=== PATIENT | female | born 1950 | race Caucasian/White ===

== ENCOUNTER 2020-07-17 07:32 | Outpatient (REF) | payer BC, SELFPAY ==
--- NOTE | 2020-07-17 07:37 | MM_ITS ---
EXAMINATION: MM SCREENING DIGITAL BREAST TOMOSYNTHESIS, BILATERAL CLINICAL INFORMATION: Screening. Asymptomatic. Right lumpectomy for breast cancer 2008. Due for yearly. COMPARISON: Mammography: 02/15/2019, 12/31/2017, 11/06/2016 TECHNIQUE: Digital breast tomosynthesis is performed in both the craniocaudal and mediolateral oblique views along with computer-aided detection (CAD). Synthesized 2D images are generated from the tomosynthesis. FINDINGS: There are scattered areas of fibroglandular density (ACR BI-RADS breast composition Category b). Breast tissue composition borders on heterogeneously dense. Parenchymal pattern is similar to prior exams. There is no developing density or interval mass or interval architectural abnormality. No abnormal calcifications. Postsurgical changes central upper right breast are again seen with old scarring, surgical clips, and some coarse benign calcification. MM/MM tomosynthesis screening BI IMPRESSION: No significant changes from prior exams. Post therapy changes right breast. ASSESSMENT: BI-RADS 2: Benign RECOMMENDATION: Routine annual mammography screening. This patient's information was entered into a reminder system with a target due date for their next mammogram.
== END 2020-07-17 07:33 | disposition home or self-care (01) ==
LOC: HO.MAMMO 07:32
PROVIDERS: PCP Internal Medicine; Visit Provider Internal Medicine
DX: Z12.31 Encounter for screening mammogram for malignant neoplasm of breast (principal)
CPT/HCPCS: 77063; 77067

== ENCOUNTER 2021-08-08 07:34 | Outpatient (REF) | payer MEDICARE, SELFPAY ==
--- NOTE | ~2021-08-08 | MM_ITS ---
EXAMINATION: MM SCREENING DIGITAL BREAST TOMOSYNTHESIS, BILATERAL CLINICAL INFORMATION: Right lumpectomy for breast cancer, 2008. Family history breast cancer, mother. Due for yearly exam. COMPARISON: Mammography: 07/17/2020, 02/15/2019, 12/31/2017, 11/06/2016 TECHNIQUE: Digital breast tomosynthesis is performed in both the craniocaudal and mediolateral oblique views along with computer-aided detection (CAD). Synthesized 2D images are generated from the tomosynthesis. FINDINGS: There are scattered areas of fibroglandular density (ACR BI-RADS breast composition Category b). Breast tissue composition borders on heterogeneously dense. There are stable post therapy changes central upper right breast with old scarring and surgical clips. Neither breast shows interval mass or architectural abnormality or developing density. No abnormal calcifications. There is benign coarse calcification in the lumpectomy scar. The axilla are unremarkable. No significant changes. MM/MM tomosynthesis screening BI IMPRESSION: No mammographic evidence of malignancy. Post therapy changes right breast. ASSESSMENT: BI-RADS 2: Benign RECOMMENDATION: Routine annual mammography screening. This patient's information was entered into a reminder system with a target due date for their next mammogram.
== END 2021-08-08 07:35 | disposition home or self-care (01) ==
LOC: HO.MAMMO 07:34
PROVIDERS: PCP Internal Medicine; Visit Provider Internal Medicine
DX: Z12.31 Encounter for screening mammogram for malignant neoplasm of breast (principal)
CPT/HCPCS: 77063; 77067

== ENCOUNTER 2021-09-02 08:53 | Outpatient (REF) | payer MEDICARE, SELFPAY ==
[2021-09-02 14:23] LABS: Alanine Aminotransferase 14 U/L (0-31); Anion Gap 12 (12-20); Aspartate Amino Transferase 21 U/L (5-31); Carbon Dioxide 30 mmol/L (22-29); Chloride 101 mmol/L (96-108); Cholesterol 235 mg/dL; Estimated Glomerular Filt Rate > 60; Glucose Fasting 95 mg/dL (60-99); HDL Cholesterol 55 mg/dL; LDL Cholesterol Calculated 161 mg/dl; Potassium 4.3 mmol/L (3.3-5.1); Sodium 139 mmol/L (135-145); Triglycerides 95 mg/dL
[2021-09-02 14:27] LABS: Vitamin D 25-OH Total 42.1 ng/mL (>30)
[2021-09-02 15:17] LABS: Blood Urea Nitrogen 21 mg/dL (9-16); Calcium 10.2 mg/dL (8.4-10.2)
== END 2021-09-02 08:54 | disposition home or self-care (01) ==
LOC: HO.HMGCLDS 08:53
PROVIDERS: PCP Internal Medicine; Visit Provider Internal Medicine
DX: E78.5 Hyperlipidemia, unspecified (principal); I10 Essential (primary) hypertension; M85.852 Other specified disorders of bone density and structure, left thigh; Z78.0 Asymptomatic menopausal state
CPT/HCPCS: 36415; 80048; 80061; 82306; 84450; 84460

== ENCOUNTER 2022-08-28 09:05 | Outpatient (REF) | payer MEDICARE, SELFPAY ==
--- NOTE | ~2022-08-28 | MM_ITS ---
EXAMINATION: MM SCREENING DIGITAL BREAST TOMOSYNTHESIS, BILATERAL CLINICAL INFORMATION: Screening. Asymptomatic. Status post right lumpectomy. COMPARISON: Mammography: August 08, 2021 and studies dating back to August 16, 2015 TECHNIQUE: Digital breast tomosynthesis is performed in both the craniocaudal and mediolateral oblique views along with computer-aided detection (CAD). Synthesized 2D images are generated from the tomosynthesis. FINDINGS: The breasts are heterogeneously dense, which may obscure small masses (ACR BI-RADS breast composition Category c). There are no new significant masses, abnormal calcifications, or other abnormalities. Postsurgical change right breast identified. MM/MM tomosynthesis screening BI IMPRESSION: No significant changes ASSESSMENT: BI-RADS 2: Benign RECOMMENDATION: Routine annual mammography screening. This patient's information was entered into a reminder system with a target due date for their next mammogram.
== END 2022-08-28 09:06 | disposition home or self-care (01) ==
LOC: HO.MAMMO 09:05
PROVIDERS: PCP Internal Medicine; Visit Provider Internal Medicine
DX: Z12.31 Encounter for screening mammogram for malignant neoplasm of breast (principal)
CPT/HCPCS: 77063; 77067

== ENCOUNTER 2022-09-01 08:14 | Outpatient (REF) | payer MEDICARE, SELFPAY ==
[2022-09-01 11:56] LABS: Alanine Aminotransferase 18 U/L (0-31); Anion Gap 14 (12-20); Aspartate Amino Transferase 23 U/L (5-31); Blood Urea Nitrogen 12 mg/dL (9-16); Calcium 9.5 mg/dL (8.4-10.2); Carbon Dioxide 28 mmol/L (22-29); Chloride 102 mmol/L (96-108); Cholesterol 208 mg/dL; Estimated Glomerular Filt Rate > 60; Glucose Fasting 87 mg/dL (60-99); HDL Cholesterol 47 mg/dL; LDL Cholesterol Calculated 141 mg/dl; Sodium 140 mmol/L (135-145); Triglycerides 100 mg/dL
[2022-09-01 12:12] LABS: Vitamin D 25-OH Total 46.4 ng/mL (>30)
== END 2022-09-01 08:15 | disposition home or self-care (01) ==
LOC: HO.HMGCLDS 08:14
PROVIDERS: PCP Internal Medicine; Visit Provider Internal Medicine
DX: E78.5 Hyperlipidemia, unspecified (principal); I10 Essential (primary) hypertension
CPT/HCPCS: 36415; 80048; 80061; 82306; 84450; 84460

== ENCOUNTER 2022-09-27 10:40 | Outpatient (REF) | payer MEDICARE, SELFPAY ==
--- NOTE | ~2022-09-27 | MM_ITS ---
EXAMINATION: BONE DENSITOMETRY CLINICAL INDICATION: Osteopenia. COMPARISON: Previous BD dated 02/15/2019 and baseline BD dated 01/15/2010. TECHNIQUE: Using a [employer] DXA System (software version: 13.1) manufactured by [employer], dual-energy x-ray absorptiometry was performed of the lumbar spine and left hip. The images are of good technical quality. Summary results are attached. FINDINGS: AP SPINE L1-L2 (excluding L3 and L4): The data of L1-L4 has been changed to exclude the L3 and L4 vertebral bodies, because degenerative changes at these levels may cause overestimation of lumbar spine density. Current: BMD 1.053 g/cm2, Z-score 0.7, T-score -0.9, normal, 6.6% decrease from previous, 11.4% decrease from baseline (<5% change is not significant). Prior: BMD 1.127 g/cm2. Baseline: BMD 1.189 g/cm2. LEFT FEMUR, NECK: Current: BMD 0.757 g/cm2, Z-score -0.3, T-score -2.0, osteopenia. Prior: BMD 0.761 g/cm2. Baseline: BMD 0.857 g/cm2. LEFT FEMUR, TOTAL: Current: BMD 0.880 g/cm2, Z-score 0.5, T-score -1.0, normal, 5.8% decrease from previous, 12.0% decrease from baseline (<5% change is not significant). Prior: BMD 0.934 g/cm2. Baseline: BMD 1.000 g/cm2. IDENTIFIED RISK FACTORS: Menopause. HISTORY OF FRACTURE: None listed. MEDICATIONS: Calcium, vitamin D. MM/XR DEXA axial skeleton IMPRESSION: 1. DIAGNOSIS: Osteopenia based on the lowest T-score value of -2.0 in the femoral neck applying World Health Organization criteria. 2. 10-YEAR FRACTURE RISK PREDICTION, FRAX: Major osteoporotic fracture (clinical spine, forearm, hip or shoulder) 12.4%. Hip fracture 2.7%. 3. Treatment Recommendations: NOF guidelines recommend consideration for treatment in postmenopausal women and men age 50 and older presenting with the following: -A hip or vertebral (clinical or morphometric) fracture. -T-score less than or equal to -2.5 at the femoral neck or spine after appropriate evaluation to exclude secondary causes. -Low bone mass at the hip or spine and a 10-year fracture probability by FRAX of greater than or equal to 3% for hip fracture or greater than or equal to 20% for major osteoporotic fracture based on the [place] adapted WHO algorithm. 4. Other Recommendations: All treatment decisions require clinical judgment and consideration of individual patient factors, including patient preferences, comorbidities, previous drug use, risk factors not captured in the FRAX model (e.g. frailty, falls, vitamin D deficiency, increased bone turnover, interval significant decline in bone density) and possible under or overestimation of fracture risk by FRAX. Additional medical evaluation for secondary cause of low bone mineral density may be appropriate. FUTURE SCAN RECOMMENDATION: People with diagnosed cases of osteoporosis or at high risk for fracture should have regular bone mineral density tests. For patients eligible for Medicare, routine testing is allowed once every 2 years. The testing frequency can be increased to one year for patients who have rapidly progressing disease, those who are receiving or discontinuing medical therapy to restore bone mass, or have additional risk factors.
== END 2022-09-27 10:41 | disposition home or self-care (01) ==
LOC: HO.MAMMO 10:40
PROVIDERS: PCP Internal Medicine; Visit Provider Internal Medicine
DX: Z13.820 Encounter for screening for osteoporosis (principal); M85.852 Other specified disorders of bone density and structure, left thigh; Z78.0 Asymptomatic menopausal state
CPT/HCPCS: 77080

== ENCOUNTER 2023-05-06 10:52 | Outpatient (AMB) | payer MEDICARE, SELFPAY ==
[2023-05-06 11:06] VITALS: BP 150/90; PULSE 58; O2SAT 98; BMI 24.8
--- NOTE | 2023-05-06 11:06 | A.OFFPC_ITS ---
Vital Signs 05/06/23 11:06 05/06/23 11:15 Height 5 ft 1 in Weight 131 lb 6 oz BMI 24.8 BP 150/90 H 130/90 H Blood Pressure Location Lt brachial Rt brachial Position Sitting Sitting Pulse 58 Pulse Source Pulse Oximeter Pulse Oximetry (%) 98 Oxygen Delivery Method Room Air Intake Visit Reasons: F/U HTN Intake Note: pt is here for f/u htn Clinical Analyst Required: No Accompanied by: Self / Same As Patient Allergies No Known Allergies [No Known Allergies*] Allergy (Verified 05/06/23 11:25) Medication List - Last Reconciled 05/06/23 by Tressa Toro MD calcium carbonate-vitamin D3 600 mg-20 mcg (800 unit) (Caltrate with Vitamin D3) 1 tab PO BID metoprolol succinate ER 100 mg PO DAILY valsartan-hydrochlorothiazide 160-12.5 mg 1 tab PO DAILY Tobacco use date assessed: 09/06/22 Fall risk assessment: No Falls in past year Last assessed Fall Risk: 05/06/23 Dental Screening Dental Screen Date: 05/06/23 Did you have a dental visit in the last 12 months?: Yes Did you have a dental problem in the last 6 months where you did not have access to dental care?: No Was dental information given to patient?: Patient has dentist HPI F/U HTN HPI Details 72-year-old lady here today for follow-u p on her hypertension. She is currently on metoprolol succinate ER 100 mg at night and valsartan and-HCTZ 160- 12.5 mg which he takes in the morning. He has been staying active, trying to follow recommended diet, and feels well overall. She has been checking at home her blood pressure and it always has been running from between 120/80 to 130/90. Has been told that she has white coat hypertension in the past [facility] Medical History (Updated 05/08/23 @ 02:49 by Tressa Toro MD) White coat syndrome with hypertension Factor 5 Leiden mutation, heterozygous Osteopenia of left hip History of right breast cancer Dyslipidemia Essential hypertension Dermatitis Surgical History History of breast surgery Family History Father HTN (hypertension) Mother HTN (hypertension) Thyroid disorder Brother HTN (hypertension) DVT (deep venous thrombosis) Substance use disorder Maternal Grandfather No problems noted. Maternal Grandmother No problems noted. Paternal Grandfather No problems noted. Paternal Grandmother No problems noted. Brother No problems noted. Sister Alcoholism Daughter No problems noted. Social History Housing: House Alcohol intake: current Patient Tobacco Use Status: Never used Tobacco e-Cigarette/Vaping Use: Never Used service: No Current occupational status: retired Cognitive needs: No Hearing needs: No Vision needs: Yes Questionnaire Thrive Questionnaire Date Thrive assessed: 09/06/22 REMIGIO-7 AMB Questionnaire REMIGIO-7 Date REMIGIO - 7 assessed: 09/06/22 Source: Developed by Drs. Darryl Salvador, Florecita Sweeney, Andrew Quiñones and colleagues, with an educational jane from [employer]. Review of Systems Const Denies body aches, Denies fever(s), Denies headache(s) and Denies weakness Eyes Details: Goes to [facility] Reports no additional complaints ENT Denies dizziness, Denies headache(s), Denies nasal congestion, Denies nasal discharge and Denies sore throat Card Denies chest pain, Denies lightheadedness and Denies dyspnea Resp Denies chest congestion, Denies cough and Denies dyspnea GI Denies abdominal pain, Denies change in bowel habits and Denies heartburn Reports no additional complaints Musc Reports no additional complaints Neuro Denies dizziness, Denies headache(s) and Denies weakness Endo Reports no additional complaints Jean/Lymph Reports no additional complaints Aller/Immun Reports no additional complaints Physical exam (Primary Care) Vital Signs: Last Vital Signs Pulse 58 05/06/23 11:06 BP 130/90 H 05/06/23 11:15 Pulse Ox 98 05/06/23 11:06 Oxygen Delivery Method Room Air 05/06/23 11:06 Care Plan Goal for BP management: Patient states that she checks her blood pressure at home and it has always been running around 116/80. BMI result Body Mass Index 24.8 Tobacco/Smoking Status: Tobacco use Status Tobacco use date assessed 09/06/22 05/06/23 11:07 Patient Tobacco Use Status Never used Tobacco 05/06/23 11:07 e-Cigarette/Vaping Use Never Used 05/06/23 11:07 Thrive Assessment: Date of Thrive Assessment Date Thrive assessed 09/06/22 05/06/23 11:07 Const General: healthy appearing, comfortable and no acute distress Nutritional Appearance: average body habitus Orientation/consciousness: patient oriented x3 HENMT Face and sinus: Yes sinuses nontender and Yes face symmetric Mouth: Normal oral and palatal mucosa present, lip normal, tongue normal and moist mucous membranes Eyes General: appearance normal, both eyes and all related structures Neck Neck: Yes full ROM, Yes no lymphadenopathy and Yes no meningeal signs Thyroid: Thyroid normal Chest Chest palpation & inspection: normal inspection of the chest Breast/axilla inspection: normal inspection of the breasts Breast/axilla palpation: normal palpation of the breasts Resp Effort & Inspection: normal respiratory effort and able to speak in complete sentences Auscultation: clear to auscultation bilaterally Cardio Rate: regular rate Rhythm: regular rhythm Heart sounds: S1 normal heart sound present and S2 normal heart sound present Bruits: no abdominal aortic bruits GI Inspection: Yes normal to inspection Palpation (GI): No Abdominal aortic bruit present, nontender and no guarding Auscultation: normal bowel sounds General: Yes no CVA tenderness Back/Spine/Pelvis Back: no CVA tenderness and No back tenderness Skin General skin exam: no rashes or lesions noted Neuro General: patient oriented x3, gait normal, tone normal, moves all extremities, Normal light touch and pain sensation, no meningeal signs, no focal motor deficits and CN's II-XI intact bilaterally Gait exam (Neuro): Normal gait present Motor exam (neuro): 5/5 motor strength present throughout Extrem General: Yes full ROM, Yes no joint enlargement, Yes no clubbing, cyanosis or edema, Yes no pedal edema and Yes normal gait Assessment and Plan Assessment & Plan (1) Essential hypertension: Code(s): I10 - Essential (primary) hypertension Plan: Blood pressure at goal of less than 130/80. Continue with current medication. Reinforced importance of following a low sodium diet, getting regular exercise, and lowering stress levels. (2) White coat syndrome with hypertension: Code(s): I10 - Essential (primary) hypertension Coding Level of Care Code Est Pt Level 3 (09756) Diagnoses Essential hypertension I10 White coat syndrome with hypertension I10
[2023-05-06 11:15] VITALS: BP 130/90
== END 2023-05-06 11:57 | disposition home or self-care (01) ==
PROVIDERS: PCP Internal Medicine; Visit Provider Internal Medicine
DX: I10 Essential (primary) hypertension (principal)
CPT/HCPCS: 99213

== ENCOUNTER 2023-09-02 07:52 | Outpatient (REF) | payer MEDICARE, SELFPAY ==
[2023-09-02 12:04] LABS: Alanine Aminotransferase 19 U/L (0-31); Anion Gap 13 (12-20); Aspartate Amino Transferase 25 U/L (5-31); Blood Urea Nitrogen 15 mg/dL (9-16); Calcium 9.7 mg/dL (8.4-10.2); Carbon Dioxide 28 mmol/L (22-29); Chloride 99 mmol/L (96-108); Cholesterol 210 mg/dL (<200); Estimated Glomerular Filt Rate > 60; Glucose Fasting 93 mg/dL (60-99); HDL Cholesterol 55 mg/dL (>40); LDL Cholesterol Calculated 140 mg/dL (<100); Potassium 3.7 mmol/L (3.3-5.1); Sodium 136 mmol/L (135-145); Triglycerides 75 mg/dL (<150)
[2023-09-02 12:20] LABS: Vitamin D 25-OH Total 58.2 ng/mL (>30)
== END 2023-09-02 07:53 | disposition home or self-care (01) ==
LOC: HO.HMGCLDS 07:52
PROVIDERS: PCP Internal Medicine; Visit Provider Internal Medicine
DX: M85.852 Other specified disorders of bone density and structure, left thigh (principal); E78.5 Hyperlipidemia, unspecified; I10 Essential (primary) hypertension
CPT/HCPCS: 36415; 80048; 80061; 82306; 84450; 84460

== ENCOUNTER 2023-09-12 07:43 | Outpatient (AMB) | payer MEDICARE, SELFPAY ==
[2023-09-12 07:45] VITALS: BP 142/76; PULSE 57; O2SAT 100; BMI 25.7
--- NOTE | 2023-09-12 07:45 | A.OFFPC_ITS ---
Vital Signs 09/12/23 07:45 09/12/23 08:42 Height 5 ft 1 in Weight 136 lb BMI 25.7 BP 142/76 H 135/80 Blood Pressure Location Lt brachial Lt brachial Position Sitting Supine Pulse 57 Pulse Source Pulse Oximeter Pulse Oximetry (%) 100 Oxygen Delivery Method Room Air Comment Patient states she just had 2 cups of black coffee prior to coming in today Intake Visit Reasons: Annual PE Intake Note: Pt is here today for her PE; Last mammogram 08/28/22, bone density scan 09/27/22, colonoscopy 09/24/16 Allergies No Known Allergies [No Known Allergies*] Allergy (Verified 09/12/23 08:13) Medication List - Last Reconciled 09/12/23 by Tressa Toro MD cholecalciferol (vitamin D3) 50 mcg PO DAILY metoprolol succinate ER 100 mg PO DAILY ywrhvvuf-uch-dvav-FA-vit K-lut 8 mg iron-400 mcg-50 mcg (Centrum Silver Women) 1 tab PO 3XW valsartan-hydrochlorothiazide 160-12.5 mg 1 tab PO DAILY Tobacco use date assessed: 09/12/23 Fall risk assessment: No Falls in past year Last assessed Fall Risk: 09/12/23 Dental Screening Dental Screen Date: 09/12/23 Did you have a dental visit in the last 12 months?: Yes Did you have a dental problem in the last 6 months where you did not have access to dental care?: No Was dental information given to patient?: Patient has dentist HPI Annual PE HPI Details 72 Year old lady here today for her phys ical exam. She is up-to-date with her mammogram which was last 08/28/22, bone density scan 09/27/22 showed beginning osteopenia in left femoral neck, and screening colonoscopy 09/24/16 which showed normal findings, repeat again in10 years. She has a healthy diet, eats a 3 times a week, and chicken a lot of vegetables and fruit, rarely eats red meat. She exercises regularly with weights, walks daily. She has been feeling well with no complaints at present time. Recent fasting labs showed normal electrolytes fasting glucose renal function, liver enzymes, vitamin-D level, and lipids showed elevated LDL cholesterol at 140, lower than last check. [facility] Medical History (Updated 09/12/23 @ 08:44 by Tressa Toro MD) White coat syndrome with hypertension Factor 5 Leiden mutation, heterozygous Osteopenia of left hip History of right breast cancer Dyslipidemia Essential hypertension Dermatitis Surgical History History of breast surgery Family History (Updated 09/12/23 @ 08:44 by Tressa Toro MD) Father HTN (hypertension) Mother HTN (hypertension) Thyroid disorder Brother HTN (hypertension) DVT (deep venous thrombosis) Substance use disorder, Onset Age: 60 History of ND (myocardial infarction) Maternal Grandfather No problems noted. Maternal Grandmother No problems noted. Paternal Grandfather No problems noted. Paternal Grandmother No problems noted. Brother No problems noted. Sister Alcoholism Daughter No problems noted. Social History Housing: House Alcohol intake: current Patient Tobacco Use Status: Never used Tobacco e-Cigarette/Vaping Use: Never Used service: No Current occupational status: retired Cognitive needs: No Hearing needs: No Vision needs: Yes Questionnaire PHQ-9 Over the last 2 weeks, how often have you been bothered by any of the following problems? 1. Little interest or pleasure in doing things: not at all 2. Feeling down, depressed, or hopeless: not at all 3. Trouble falling or staying asleep, or sleeping too much: not at all 4. Feeling tired or having little energy: not at all 5. Poor appetite or overeating: not at all 6. Feeling bad about yourself - or that you are a failure or have let yourself or your family down: not at all 7. Trouble concentrating on things, such as reading the newspaper or watching television: not at all 8. Moving or speaking so slowly that other people could have noticed. Or the opposite - being so fidgety or restless that you have been moving around a lot more than usual: not at all 9. Thoughts that you would be better off or of hurting yourself in some way: not at all Total score: 0 Depression Screening Interpretation: Negative Depression Screening Done: Yes 04059 - PHQ-9 Billing: Yes Source: Developed by Drs. Darryl LFlorecita Norman Kurt Kroenke and colleagues, with an educational jane from [employer]. Thrive Questionnaire Date Thrive assessed: 09/12/23 I am a: Patient What is your living situation today?: I have a steady place to live Within the past 12 months, did the food you bought not last and you didn't have the money to get more?: Never true Within the past 12 months, did you worry whether your food would run out before you got money to buy more?: Never true Do you have trouble paying for medicines?: No Do you have trouble getting transportation to medical appointments?: No Do you have trouble paying your heating and electricity bill?: No Do you have trouble taking care of your child, family member or friend?: No Do you have trouble with day-to-day activities such as bathing, preparing meals, shopping, managing finances, etc.?: No Are you currently unemployed and looking for a job?: No Are you interested in more education?: No THRIVE Score: 0 AUDIT C Alcohol Use Questionnaire (AUDIT-C) 1. How often do you have a drink containing alcohol?: 4 or more times a week 2. How many drinks containing alcohol do you have on a typical day when you are drinking?: 1 or 2 3. How often do you have six or more drinks on one occasion?: Never Total Score: 4 REMIGIO-7 AMB Questionnaire REMIGIO-7 Date REMIGIO - 7 assessed: 09/12/23 Feeling nervous, anxious, or on edge: 0 = Not at all Not being able to stop or control worryin = Not at all Worrying too much about different things: 0 = Not at all Trouble relaxin = Not at all Being so restless that it is hard to sit still: 0 = Not at all Becoming easily annoyed or irritable: 0 = Not at all Feeling afraid as if something awful might happen: 0 = Not at all Total REMIGIO-7 score (0-4 normal; 5-9 mild; 10-14 moderate; 15-21 severe): 0 Source: Developed by Drs. Darryl Salvador, Andrew Owens and colleagues, with an educational jane from [employer]. REMIGIO-7 Assessment Billing REMIGIO-7 Assessment Tool: REMIGIO-7 Assessment 51416 Review of Systems Const Denies body aches, Denies fever(s), Denies headache(s) and Denies weakness Eyes Details: Goes to [facility] eye care, up-to-date with her eye exam Reports no additional complaints ENT Denies dizziness, Denies headache(s), Denies nasal congestion, Denies nasal discharge and Denies sore throat Card Denies chest pain, Denies lightheadedness and Denies dyspnea Resp Denies chest congestion, Denies cough and Denies dyspnea GI Denies abdominal pain, Denies change in bowel habits and Denies heartburn Reports no additional complaints Musc Reports no additional complaints Skin/Breast Denies breast swelling, Denies breast skin changes, Reports breast pain (Occasional over lumpectomy site right breast), Denies breast mass, Denies change in breast shape, Denies lesions and Denies rash Neuro Denies dizziness, Denies headache(s) and Denies weakness Psych Reports no additional complaints Endo Reports no additional complaints Jean/Lymph Reports no additional complaints Aller/Immun Reports no additional complaints Physical exam (Primary Care) Vital Signs: Last Vital Signs Pulse 57 09/12/23 07:45 BP 142/76 H 09/12/23 07:45 Pulse Ox 100 09/12/23 07:45 Oxygen Delivery Method Room Air 09/12/23 07:45 Care Plan Goal for BP management: Patient states that she checks her blood pressure at home and it has always been running around 116/80. BMI result Body Mass Index 25.7 Tobacco/Smoking Status: Tobacco use Status Tobacco use date assessed 09/12/23 09/12/23 07:47 Patient Tobacco Use Status Never used Tobacco 09/12/23 07:47 e-Cigarette/Vaping Use Never Used 09/12/23 07:47 PHQ-9: PHQ-9 Score PHQ-9: Total score 0 09/12/23 07:53 Depression Screening Interpretation: Negative Thrive Assessment: Date of Thrive Assessment Date Thrive assessed 09/12/23 09/12/23 07:53 Const General: healthy appearing, comfortable and no acute distress Nutritional Appearance: average body habitus Orientation/consciousness: patient oriented x3 HENMT Face and sinus: Yes sinuses nontender and Yes face symmetric Mouth: Normal oral and palatal mucosa present, lip normal, tongue normal and moist mucous membranes Eyes General: appearance normal, both eyes and all related structures Neck Neck: Yes full ROM, Yes no lymphadenopathy and Yes no meningeal signs Thyroid: Thyroid normal Chest Chest palpation & inspection: normal inspection of the chest Breast/axilla inspection: normal inspection of the breasts Breast/axilla palpation: normal palpation of the breasts (Slight thickening over upper quadrant of right breast due to scar) Resp Effort & Inspection: normal respiratory effort and able to speak in complete sentences Auscultation: clear to auscultation bilaterally Cardio Rate: regular rate Rhythm: regular rhythm Heart sounds: S1 normal heart sound present and S2 normal heart sound present Bruits: no abdominal aortic bruits GI Inspection: Yes normal to inspection Palpation (GI): No Abdominal aortic bruit present, nontender and no guarding Auscultation: normal bowel sounds General: Yes no CVA tenderness Back/Spine/Pelvis Back: no CVA tenderness and No back tenderness Skin General skin exam: no rashes or lesions noted Neuro General: patient oriented x3, gait normal, tone normal, moves all extremities, Normal light touch and pain sensation, no meningeal signs, no focal motor deficits and CN's II-XI intact bilaterally Gait exam (Neuro): Normal gait present Motor exam (neuro): 5/5 motor strength present throughout Extrem General: Yes full ROM, Yes no joint enlargement, Yes no clubbing, cyanosis or edema, Yes no pedal edema and Yes normal gait Psych Appearance: grossly normal and well kempt Mental Status: mental status grossly normal Speech and movement: Normal speech and movement present Affect: normal affect Attitude: cooperative Thought process: Normal thought process present Thought content: Normal thought content present Results Reviewed Results Reviewed: ENTERED: 09/02/23-[address]: ORDERED: Met Prof Fast, AST, ALT, Lipid Panel, Vitamin D 25-OH Test Result Flag Reference Sodium 136 135-145 mmol/L Potassium 3.7 3.3-5.1 mmol/L CL 99 96-108 mmol/L CO2 28 22-29 mmol/L Gap 13 12-20 BUN 15 9-16 mg/dL Creat 0.82 0.5-1.4 mg/dL EGFR > 60 NOTE: For -[place] individuals, multiply the result by 1.210. Chronic Kidney Disease: Estimated GFR < 60 mL/min/1.73m2 Severe Kidney Disease: Estimated GFR < 15 mL/min/1.73m2 FBS 93 60-99 mg/dL CA 9.7 8.4-10.2 mg/dL AST (GOT) 25 5-31 U/L ALT (GPT) 19 0-31 U/L Triglyceride 75 <150 mg/dL Desirable Triglyceride: less than 150 mg/dL Borderline High Triglyceride 150-199 mg/dL High Triglyceride: 200-499 mg/dL Very High Triglyceride: greater than or equal to 5OO mg/dL Cholesterol 210 H <200 mg/dL Desirable Cholesterol: less than 200 mg/dL Borderline High Cholesterol: 200-239 mg/dL High Cholesterol: greater than 239 mg/dL LDL Calculated 140 H <100 mg/dL Desirable LDL: less than 100 mg/dL Near Optimal/Above Optimal LDL: 110-129 mg/dL Borderline High LDL: 130-159 mg/dL High LDL: 160-189 mg/dL Very High LDL: greater than or equal to 190 mg/dL HDL 55 >40 mg/dL Desirable HDL: greater than 40 mg/dL Note: This HDL assay may give artificially low results in patients with liver disease. Vit D 25-OH Tot 58.2 >30 ng/mL Health Based Reference Values* < 20 ng/mL Deficient 20-30 ng/mL Insufficient > 30 ng/mL Sufficient Assessment and Plan Assessment & Plan (1) Annual visit for general adult medical examination with abnormal findings: Code(s): Z00.01 - Encounter for general adult medical examination with abnormal findings Plan: Recent fasting labs results was discussed with patient, will repeat another fasting lipid panel in December 2023. Continue with regular dental visit every 6 months and regular eye exams, now goes to [facility] Take adequate calcium in diet and vitamin-D 3 at 2000 IU per cap once a day, in addition to weight-bearing exercises to help maintain good muscle tone and weight control. Instructed to do self-breast exam, and continue to get yearly mammogram. Repeat bone density scan due next year. Declines getting COVID booster but is up-to-date with her flu vaccine shingles vaccine pneumonia vaccine and Tdap. She is up-to-date with her screening Colonoscopy (2) Dyslipidemia: Code(s): E78.5 - Hyperlipidemia, unspecified Plan: Reviewed recent fasting lab results, which showed lipids within normal limits except for high LDL cholesterol at 140, lower than last check. Continue with current diet and continue with regular exercise will repeat another fasting lipid panel in December 2023 and if still elevated, will start on statin (3) Essential hypertension: Code(s): I10 - Essential (primary) hypertension Plan: Patient has white coat hypertension, pressure running within normal limits at home, usually running higher at the clinic. Denies any chest pain, headache or lightheadedness, will continue on current medications (4) History of right breast cancer: Code(s): Z85.3 - Personal history of malignant neoplasm of breast Plan: Reminded to get her screening mammogram done this year (5) Osteopenia of left hip: Code(s): M85.852 - Other specified disorders of bone density and structure, left thigh Plan: Continue with regular weight-bearing exercise and taking adequate calcium from dietary sources continue with vitamin-D 3 at 2000 units daily. Will repeat another bone density scan next year (6) White coat syndrome with hypertension: Code(s): I10 - Essential (primary) hypertension (7) Factor 5 Leiden mutation, heterozygous: Comment: Followed by Dr. Cruz, no anticoagulation needed at this point Code(s): D68.51 - Activated protein C resistance Plan: Followed by Dr. Cruz no need for any anticoagulation at present time Orders: Orders Lipid Panel 12/24/23 E78.5 - Hyperlipidemia, unspecified, I10 - Essential (primary) hypertension Coding Level of Care Code Est Pt Prev Care >65y(95394) Diagnoses Annual visit for general adult medical examination with abnormal findings Z00.01 Dyslipidemia E78.5 Essential hypertension I10 History of right breast cancer Z85.3 Osteopenia of left hip M85.852 White coat syndrome with hypertension I10 Factor 5 Leiden mutation, heterozygous D68.51 Additional Codes REMIGIO-7 Assessment Billing - REMIGIO-7 Assessment Tool: REMIGIO-7 Assessment 79011 ([id number])
[2023-09-12 08:42] VITALS: BP 135/80
== END 2023-09-12 14:33 | disposition home or self-care (01) ==
PROVIDERS: Visit Provider Internal Medicine
DX: Z00.00 Encounter for general adult medical examination without abnormal findings (principal); D68.51 Activated protein C resistance; E78.5 Hyperlipidemia, unspecified; M85.852 Other specified disorders of bone density and structure, left thigh; I10 Essential (primary) hypertension; Z85.3 Personal history of malignant neoplasm of breast
CPT/HCPCS: 99396; 99397

== ENCOUNTER 2023-09-14 07:34 | Outpatient (REF) | payer MEDICARE, SELFPAY ==
--- NOTE | ~2023-09-14 | MM_ITS ---
EXAMINATION: MM SCREENING DIGITAL BREAST TOMOSYNTHESIS, BILATERAL CLINICAL INFORMATION: Screening. Asymptomatic. The patient is status right post breast conservation for cancer. COMPARISON: Mammography: This study is compared with prior exams dating back to 2018. TECHNIQUE: Digital breast tomosynthesis is performed in both the craniocaudal and mediolateral oblique views along with computer-aided detection (CAD). Synthesized 2D images are generated from the tomosynthesis. FINDINGS: There are scattered areas of fibroglandular density (ACR BI-RADS breast composition Category b). There are no significant masses, abnormal calcifications, or other abnormalities. There are postsurgical changes in the superior aspect of the right breast. This consists of architectural change, surgical clips and dystrophic calcification. MM/MM tomosynthesis screening BI IMPRESSION: No mammographic evidence of malignancy. Postsurgical changes right breast. ASSESSMENT: BI-RADS BI-RADS 2 - Benign Findings RECOMMENDATION: Routine annual mammography screening. 1 year F/U This examination should not preclude the clinical evaluation of a suspicious palpable abnormality. This patient's information was entered into a reminder system with a target due date for their next mammogram.
== END 2023-09-14 07:35 | disposition home or self-care (01) ==
LOC: HO.MAMMO 07:34
PROVIDERS: PCP Internal Medicine; Visit Provider Internal Medicine
DX: Z12.31 Encounter for screening mammogram for malignant neoplasm of breast (principal)
CPT/HCPCS: 77063; 77067

== ENCOUNTER → 2023-09-14 07:45 | Outpatient (BNV) | payer MEDICARE, SELFPAY | PROVIDERS: PCP Internal Medicine; Visit Provider Radiology Diagnostic Radiology | DX: Z12.31 Encounter for screening mammogram for malignant neoplasm of breast (principal) | CPT/HCPCS: 77063; 77067 ==

== ENCOUNTER 2024-03-09 13:28 | Outpatient (AMB) | payer MEDICARE, SELFPAY ==
--- NOTE | 2024-03-09 13:29 | AM.OFFWIN_ITS ---
Intake Vital Signs 03/09/24 13:30 Height 5 ft 1 in Weight 132 lb BMI 24.9 BP 122/84 Blood Pressure Location Lt brachial Position Sitting Pulse 45 L Pulse Source Pulse Oximeter Temp 97.7 F Temp Source Oral Pulse Oximetry (%) 97 Oxygen Delivery Method Room Air Intake Visit Reasons: EP Nail fungus Intake Note: pt c/o nail fungus RT thumb. Ongoing. Home remedies not working Patient Tobacco Use Status: Never used Tobacco Allergies No Known Allergies [No Known Allergies*] Allergy (Verified 03/09/24 13:30) Do you need a note to return to daycare/school/sports/work: No HPI HPI Comments History of Present Illness Details 73 y/o female patient who presents to [facility] walk [facility] clinic with c/o Finger Nail fungal infection x months. Reports getting Fungal infection from Manicures with fake Nails - right Thumb. She has tried multiple OTC Fungal creams and ointment with no relief. [facility] Medical History (Updated 09/12/23 @ 08:44 by Tressa Toro MD) White coat syndrome with hypertension Factor 5 Leiden mutation, heterozygous Osteopenia of left hip History of right breast cancer Dyslipidemia Essential hypertension Dermatitis Surgical History History of breast surgery Family History (Updated 09/12/23 @ 08:44 by Tressa Toro MD) Father HTN (hypertension) Mother HTN (hypertension) Thyroid disorder Brother HTN (hypertension) DVT (deep venous thrombosis) Substance use disorder, Onset Age: 60 History of CA (myocardial infarction) Maternal Grandfather No problems noted. Maternal Grandmother No problems noted. Paternal Grandfather No problems noted. Paternal Grandmother No problems noted. Brother No problems noted. Sister Alcoholism Daughter No problems noted. Social History Housing: House Alcohol intake: current Patient Tobacco Use Status: Never used Tobacco e-Cigarette/Vaping Use: Never Used service: No Current occupational status: retired Cognitive needs: No Hearing needs: No Vision needs: Yes Review of Systems Const All systems reviewed & are unremarkable except as noted in HPI and below Physical Exam Vital Signs: Last Vital Signs Temp 97.7 F 03/09/24 13:30 Pulse 45 L 03/09/24 13:30 BP 122/84 03/09/24 13:30 Pulse Ox 97 03/09/24 13:30 Oxygen Delivery Method Room Air 03/09/24 13:30 BMI result Body Mass Index 24.9 Const General: comfortable and no acute distress Orientation/consciousness: patient oriented x3 Skin Nails: discolored (Right thumb nail), dystrophic (Right thumb nail) and yellow and thickened (Right thumb nail) Neuro General: patient oriented x3 Assessment & Plan Assessment & Plan (1) Tinea unguium: Code(s): B35.1 - Tinea unguium Plan: Pt prefers Topical Treatment Vs Systemic. Advised her the medication might be pricey and most insurances do not cover. Medications: New efinaconazole 10% Ensure complete coverage of the nail, the nail folds, nail bed, surrounding skin, and the undersurface of the nail plate 1 appl topical DAILY 8 mL 1RF B35.1 - Tinea unguium Coding Level of Care Code Est Pt Level 3 (64258) Diagnoses Tinea unguium B35.1 Time Spent (min) 15
[2024-03-09 13:30] VITALS: BP 122/84; PULSE 45; TEMP 36.5; O2SAT 97; BMI 24.9
== END 2024-03-09 13:51 | disposition home or self-care (01) ==
PROVIDERS: PCP Internal Medicine; Visit Provider Nurse Practitioner Family
DX: B35.1 Tinea unguium (principal)
CPT/HCPCS: 99213

== ENCOUNTER 2024-03-17 07:29 | Outpatient (REF) | payer MEDICARE, SELFPAY ==
[2024-03-17 11:44] LABS: Cholesterol 195 mg/dL (<200); HDL Cholesterol 52 mg/dL (>40); LDL Cholesterol Calculated 129 mg/dL (<100); Triglycerides 73 mg/dL (<150)
== END 2024-03-17 07:30 | disposition home or self-care (01) ==
LOC: HO.HMGCLDS 07:29
PROVIDERS: PCP Internal Medicine; Visit Provider Internal Medicine
DX: E78.5 Hyperlipidemia, unspecified (principal); I10 Essential (primary) hypertension
CPT/HCPCS: 36415; 80061

== ENCOUNTER 2024-09-15 07:05 | Outpatient (REF) | payer MEDICARE, SELFPAY ==
--- OUTSIDE RECORDS SUMMARY | 2024-09-15 07:07 | XMS_ITS | Encounter Summary ---
Author Organization [facility] Address [address] [place] [address] Care Team Providers Care Strand Forming Machine Operator Name Role Phone Unavailable Primary Care Provider Unavailabl e Encounter Details Date Type Department Care Team (Late st Contact Info) Description 12/07/2023 Refill [facility] [address] [place] [phone] Maury Braun, ELIS [address] [place] [address] [address] [place] [address] Social History Tobacco Use Types Packs/Day Years Used Date Smoking Tobacco: Never Assessed Sex and Gender Information Value Date Recorded Sex Assigned at Not on file Gender Identity Not on file Sexual Orientation Not on file documented as of this encounter Plan of Treatment Not on file documented as of this encounter Visit Diagnoses Not on filedocumented in this encounter
[2024-09-15 11:46] LABS: Alanine Aminotransferase 20 U/L (0-31); Anion Gap 11 (12-20); Aspartate Amino Transferase 31 U/L (5-31); Blood Urea Nitrogen 13 mg/dL (9-16); Calcium 9.1 mg/dL (8.4-10.2); Carbon Dioxide 28 mmol/L (22-29); Chloride 101 mmol/L (96-108); Cholesterol 190 mg/dL (<200); Estimated Glomerular Filt Rate > 60; Glucose Fasting 88 mg/dL (60-99); HDL Cholesterol 54 mg/dL (>40); LDL Cholesterol Calculated 119 mg/dL (<100); Potassium 4.1 mmol/L (3.3-5.1); Sodium 136 mmol/L (135-145); Triglycerides 86 mg/dL (<150)
[2024-09-15 12:02] LABS: Vitamin D 25-OH Total 107.4 ng/mL (>30)
== END 2024-09-15 07:06 | disposition home or self-care (01) ==
LOC: HO.HMGCLDS 07:05
PROVIDERS: PCP Internal Medicine; Visit Provider Internal Medicine
DX: I10 Essential (primary) hypertension (principal); E78.5 Hyperlipidemia, unspecified; M85.852 Other specified disorders of bone density and structure, left thigh
CPT/HCPCS: 36415; 80048; 80061; 82306; 84450; 84460

== ENCOUNTER 2024-09-17 08:30 | Outpatient (REF) | payer MEDICARE, SELFPAY ==
--- OUTSIDE RECORDS SUMMARY | 2024-09-17 08:52 | XMS_ITS | Encounter Summary ---
Author Organization [facility] Address [address] [place] [address] Care Team Providers Care Yarn Mercerizer Operator Name Role Phone Unavailable Primary Care Provider Unavailabl e Encounter Details Date Type Department Care Team (Late st Contact Info) Description 12/07/2023 Refill [facility] [address] [place] [phone] Maury Braun, ELIS [address] [place] [address] [address] [place] [address] Social History Tobacco Use Types Packs/Day Years [...]
--- OUTSIDE RECORDS SUMMARY | 2024-09-17 08:52 | XMS_ITS | Clinical Summary ---
Author Organization [facility] Address [address] [place] [address] Care Team Providers Care Retail Loss Prevention Investigator Name Role Phone Unavailable Primary Care Provider Unavailabl e Social History Tobacco Use Types Packs/Day Years Used Date Smoking Tobacco: Never Assessed Sex and Gender Information Value Date Recorded Sex Assigned at Not on file Gender Identity Not on file Sexual Orientation Not on file Plan of Treatment Health Maintenance Due Date Last Done Comments Hepatitis C Virus Screening 1950 DTaP/Tdap/Td Vaccines (1 - Tdap) 1969 Pneumococcal Vaccines 50+ (1 of 1 - PCV) 2000 Zoster (Shingles) Vaccine (1 of 2) 2000 COVID-19 Vaccine ( - 2023-2 5 season) 2024 RSV Vaccine 60 years and old er and Patients (1 - 1-dose 75+ series) 2025 Hepatitis B Vaccines Aged Out No long er eligible based on patient's age to complete this topic
== END 2024-09-17 08:31 | disposition home or self-care (01) ==
LOC: HO.MAMMO 08:30
PROVIDERS: PCP Internal Medicine; Visit Provider Internal Medicine
DX: Z12.31 Encounter for screening mammogram for malignant neoplasm of breast (principal)
CPT/HCPCS: 77063; 77067

== ENCOUNTER → 2024-09-17 08:45 | Outpatient (BNV) | payer MEDICARE, SELFPAY | PROVIDERS: PCP Internal Medicine; Visit Provider Internal Medicine | DX: Z12.31 Encounter for screening mammogram for malignant neoplasm of breast (principal) | CPT/HCPCS: 77063; 77067 ==

== ENCOUNTER 2024-09-19 08:07 | Outpatient (AMB) | payer MEDICARE, SELFPAY ==
[2024-09-19 08:15] VITALS: BP 130/76; PULSE 60; RESP 18; TEMP 36.6; O2SAT 98; BMI 24.4
--- NOTE | 2024-09-19 08:15 | A.OFFPC_ITS ---
Vital Signs 09/19/24 08:15 Height 5 ft 1 in Weight 129 lb BMI 24.4 BP 130/76 Blood Pressure Location Lt brachial Position Sitting Respiration 18 Pulse 60 Pulse Source Pulse Oximeter Temp 97.9 F Temp Source Oral Pulse Oximetry (%) 98 Oxygen Delivery Method Room Air Intake Visit Reasons: Annual PE Intake Note: Pt is here today for PE. Allergies No Known Allergies [No Known Allergies*] Allergy (Verified 09/19/24 08:26) Medication List - Last Reconciled 09/19/24 by Tressa Toro MD cholecalciferol (vitamin D3) 25 mcg PO DAILY metoprolol succinate ER 100 mg PO DAILY qlhojbez-dfv-jckn-FA-vit K-lut 8 mg iron-400 mcg-50 mcg (Centrum Silver Women) 1 tab PO 3XW valsartan-hydrochlorothiazide 160-12.5 mg 1 tab PO DAILY Tobacco use date assessed: 09/19/24 Fall risk assessment: No Falls in past year Last assessed Fall Risk: 09/19/24 Dental Screening Dental Screen Date: 09/19/24 Did you have a dental visit in the last 12 months?: Yes Did you have a dental problem in the last 6 months where you did not have access to dental care?: No Was dental information given to patient?: Patient has dentist HPI Annual PE HPI Details Old lady here past medical history of right breast cancer, 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 She has hypertension currently stable and controlled on valsartan-HCTZ and metoprolol succinate ER. She is up-to-date with her screening mammogram, just done earlier this month with results still pending, had a bone density in 2022 which showed presence of osteopenia in left femoral neck, normal in lumbar spine and left femur, had a screening colonoscopy in 2016 showed normal findings, repeat due in 2026. She exercises regularly, walks and does exercise videos at home when the weather is cold. Has been losing weight. Recent fasting labs showed normal findings and lower cholesterol levels as compared to last check but vitamin-D is supratherapeutic.. She is up-to-date with her vaccinations but does not want to get RSV vaccine or the COVID booster [facility] Medical History White coat syndrome with hypertension Factor 5 Leiden mutation, heterozygous Osteopenia of left hip History of right breast cancer Dyslipidemia Essential hypertension Dermatitis Surgical History History of breast surgery Family History Father HTN (hypertension) Mother HTN (hypertension) Thyroid disorder Brother HTN (hypertension) DVT (deep venous thrombosis) Substance use disorder, Onset Age: 60 History of PA (myocardial infarction) Maternal Grandfather No problems noted. Maternal Grandmother No problems noted. Paternal Grandfather No problems noted. Paternal Grandmother No problems noted. Brother No problems noted. Sister Alcoholism Daughter No problems noted. Social History Housing: House Alcohol intake: current Patient Tobacco Use Status: Never used Tobacco e-Cigarette/Vaping Use: Never Used service: No Current occupational status: retired Cognitive needs: No Hearing needs: No Vision needs: Yes Questionnaire PHQ-9 Over the last 2 weeks, how often have you been bothered by any of the following problems? 1. Little interest or pleasure in doing things: not at all 2. Feeling down, depressed, or hopeless: not at all 3. Trouble falling or staying asleep, or sleeping too much: not at all 4. Feeling tired or having little energy: not at all 5. Poor appetite or overeating: not at all 6. Feeling bad about yourself - or that you are a failure or have let yourself or your family down: not at all 7. Trouble concentrating on things, such as reading the newspaper or watching television: not at all 8. Moving or speaking so slowly that other people could have noticed. Or the opposite - being so fidgety or restless that you have been moving around a lot more than usual: not at all 9. Thoughts that you would be better off or of hurting yourself in some way: not at all Total score: 0 Depression Screening Interpretation: Negative Depression Screening Done: Yes 25829 - PHQ-9 Billing: Yes Source: Developed by Drs. Darryl Salvador, Andrew Owens and colleagues, with an educational jane from [employer]. Thrive Questionnaire Date Thrive assessed: 09/12/23 I am a: Patient What is your living situation today?: I have a steady place to live Within the past 12 months, did the food you bought not last and you didn't have the money to get more?: Never true Within the past 12 months, did you worry whether your food would run out before you got money to buy more?: Never true Do you have trouble paying for medicines?: No Do you have trouble getting transportation to medical appointments?: No Do you have trouble paying your heating and electricity bill?: No Do you have trouble taking care of your child, family member or friend?: No Do you have trouble with day-to-day activities such as bathing, preparing meals, shopping, managing finances, etc.?: No Are you currently unemployed and looking for a job?: No Are you interested in more education?: No Please select the resources that you would like help with: None Currently or been in a relationship where the following occur: No concerns reported THRIVE Score: 0 AUDIT C Alcohol Use Questionnaire (AUDIT-C) 1. How often do you have a drink containing alcohol?: 4 or more times a week 2. How many drinks containing alcohol do you have on a typical day when you are drinking?: 1 or 2 3. How often do you have six or more drinks on one occasion?: Never Total Score: 4 REMIGIO-7 AMB Questionnaire REMIGIO-7 Date REMIGIO - 7 assessed: 09/19/24 Feeling nervous, anxious, or on edge: 0 = Not at all Not being able to stop or control worryin = Not at all Worrying too much about different things: 0 = Not at all Trouble relaxin = Not at all Being so restless that it is hard to sit still: 0 = Not at all Becoming easily annoyed or irritable: 0 = Not at all Feeling afraid as if something awful might happen: 0 = Not at all Total REMIGIO-7 score (0-4 normal; 5-9 mild; 10-14 moderate; 15-21 severe): 0 Source: Developed by Florecita Pemberton Kurt Kroenke and colleagues, with an educational jane from [employer]. REMIGIO-7 Assessment Billing REMIGIO-7 Assessment Tool: REMIGIO-7 Assessment 31463 Review of Systems Const Denies body aches, Denies fever(s), Denies headache(s) and Denies weakness Eyes Details: Goes to [facility], up-to-date with her eye exam Reports no additional complaints ENT Denies dizziness, Denies headache(s), Denies nasal congestion, Denies nasal discharge and Denies sore throat Card Denies chest pain, Denies lightheadedness and Denies dyspnea Resp Denies chest congestion, Denies cough and Denies dyspnea GI Denies abdominal pain, Denies change in bowel habits and Denies heartburn Reports no additional complaints Musc Reports no additional complaints Skin/Breast Denies breast swelling, Denies breast skin changes, Reports breast pain (Occasional over lumpectomy site right breast), Denies breast mass, Denies change in breast shape, Denies lesions and Denies rash Neuro Denies dizziness, Denies headache(s) and Denies weakness Psych Reports no additional complaints Endo Reports no additional complaints Jean/Lymph Reports no additional complaints Aller/Immun Reports no additional complaints Physical exam (Primary Care) Vital Signs: Last Vital Signs Temp 97.9 F 09/19/24 08:15 Pulse 60 09/19/24 08:15 Resp 18 09/19/24 08:15 BP 130/76 09/19/24 08:15 Pulse Ox 98 09/19/24 08:15 Oxygen Delivery Method Room Air 09/19/24 08:15 BMI result Body Mass Index 24.4 Tobacco/Smoking Status: Tobacco use Status Tobacco use date assessed 09/19/24 09/19/24 08:20 Patient Tobacco Use Status Never used Tobacco 09/19/24 08:20 e-Cigarette/Vaping Use Never Used 09/19/24 08:15 PHQ-9: PHQ-9 Score PHQ-9: Total score 0 09/19/24 08:39 Depression Screening Interpretation: Negative Thrive Assessment: Date of Thrive Assessment Date Thrive assessed 09/12/23 09/19/24 08:15 Currently or been in a relationship where the following occur: No concerns reported Const General: healthy appearing, comfortable and no acute distress Nutritional Appearance: average body habitus Orientation/consciousness: patient oriented x3 HENMT Face and sinus: Yes sinuses nontender and Yes face symmetric Mouth: Normal oral and palatal mucosa present, lip normal, tongue normal and moist mucous membranes Eyes General: appearance normal, both eyes and all related structures Neck Neck: Yes full ROM, Yes no lymphadenopathy and Yes no meningeal signs Thyroid: Thyroid normal Chest Chest palpation & inspection: normal inspection of the chest Breast/axilla inspection: normal inspection of the breasts Breast/axilla palpation: normal palpation of the breasts (Slight thickening over upper quadrant of right breast due to scar) Resp Effort & Inspection: normal respiratory effort and able to speak in complete sentences Auscultation: clear to auscultation bilaterally Cardio Rate: regular rate Rhythm: regular rhythm Heart sounds: S1 normal heart sound present and S2 normal heart sound present Bruits: no abdominal aortic bruits GI Inspection: Yes normal to inspection Palpation (GI): No Abdominal aortic bruit present, nontender and no guarding Auscultation: normal bowel sounds General: Yes no CVA tenderness Back/Spine/Pelvis Back: no CVA tenderness and No back tenderness Skin General skin exam: no rashes or lesions noted Neuro General: patient oriented x3, gait normal, tone normal, moves all extremities, Normal light touch and pain sensation, no meningeal signs, no focal motor deficits and CN's II-XI intact bilaterally Gait exam (Neuro): Normal gait present Motor exam (neuro): 5/5 motor strength present throughout Extrem General: Yes full ROM, Yes no joint enlargement, Yes no clubbing, cyanosis or edema, Yes no pedal edema and Yes normal gait Psych Appearance: grossly normal and well kempt Mental Status: mental status grossly normal Speech and movement: Normal speech and movement present Affect: normal affect Attitude: cooperative Thought process: Normal thought process present Thought content: Normal thought content present Results Reviewed Results Reviewed: Name: Nancy Montgomery Age/Sex: 73/F : 1950 Unit#: [id number] Attend Dr: Tressa Toro MD Re09/15/24 Status: DEP [facility]F [facility] Disch: SPEC : [id number] EZEKIEL: 09/15/24 STATUS: COMP REQ : [id number] RECD: 09/15/24-[address]: Tressa Toro MD COMP: 09/15/24-1202 ENTERED: 09/15/24-[address]: ORDERED: Met Prof Fast, AST, ALT, Lipid Panel, Vitamin D 25-OH Test Result Flag Reference Sodium 136 135-145 mmol/L Potassium 4.1 3.3-5.1 mmol/L CL 101 96-108 mmol/L CO2 28 22-29 mmol/L Gap 11 L 12-20 BUN 13 9-16 mg/dL Creat 0.68 0.5-1.4 mg/dL eGFR > 60 Chronic Kidney Disease: Estimated GFR < 60 mL/min/1.73m2 Severe Kidney Disease: Estimated GFR < 15 mL/min/1.73m2 FBS 88 60-99 mg/dL CA 9.1 # 8.4-10.2 mg/dL AST (GOT) 31 5-31 U/L ALT (GPT) 20 0-31 U/L Triglyceride 86 <150 mg/dL Desirable Triglyceride: less than 150 mg/dL Borderline High Triglyceride 150-199 mg/dL High Triglyceride: 200-499 mg/dL Very High Triglyceride: greater than or equal to 5OO mg/dL Cholesterol 190 <200 mg/dL Desirable Cholesterol: less than 200 mg/dL Borderline High Cholesterol: 200-239 mg/dL High Cholesterol: greater than 239 mg/dL LDL Calculated 119 H <100 mg/dL Desirable LDL: less than 100 mg/dL Near Optimal/Above Optimal LDL: 110-129 mg/dL Borderline High LDL: 130-159 mg/dL High LDL: 160-189 mg/dL Very High LDL: greater than or equal to 190 mg/dL HDL 54 >40 mg/dL Desirable HDL: greater than 40 mg/dL Note: This HDL assay may give artificially low results in patients with liver disease. Vit D 25-OH Tot 107.4 >30 ng/mL Health Based Reference Values* < 20 ng/mL Deficient 20-30 ng/mL Insufficient > 30 ng/mL Sufficient Coding Level of Care Code Est Pt Prev Care >65y(31772) Diagnoses Annual visit for general adult medical examination with abnormal findings Z00.01 Osteopenia of left hip M85.852 Skin cancer screening Z12.83 Essential hypertension I10 Additional Codes REMIGIO-7 Assessment Billing - REMIGIO-7 Assessment Tool: REMIGIO-7 Assessment 78700 ([id number]) PHQ-9 - 96748 - PHQ-9 Billing: Yes ([id number]) Assessment & Plan Assessment & Plan (1) Annual visit for general adult medical examination with abnormal findings: Code(s): Z00.01 - Encounter for general adult medical examination with abnormal findings Plan: Fasting lab results reviewed with patient. Continue with dental prophylaxis every 6 months . Up-to-date with the regular eye exams, [facility]. Continue regular breast exams and yearly mammogram, , up-to-date, with results still pending. With a bone density scan to be done together with next mammogram in 09/24/2025. Had a colonoscopy in 2017 with no further testing . Up-to-date with all her vaccinations but does not want to get a COVID booster or the RSV vaccine (2) Osteopenia of left hip: Code(s): M85.852 - Other specified disorders of bone density and structure, left thigh Category: Medical Plan: Ordered a bone density scan to be done together with her screening mammogram scheduled for 09/24/2025. Continue with doing regular weight-bearing exercise, take adequate calcium from dietary sources and continue with centrum silver with vitamin-D supplement. Stopped taking extra vitamin-D as levels right now are supratherapeutic (3) Skin cancer screening: Code(s): Z12.83 - Encounter for screening for malignant neoplasm of skin Plan: Referred to [facility] dermatology (4) Essential hypertension: Code(s): I10 - Essential (primary) hypertension Category: Medical Plan: Blood pressure at goal of less than 130/80. Continue with current medication. Reinforced importance of following a low sodium diet, getting regular exercise, and lowering stress levels. Orders: Orders XR DEXA axial skeleton Today M85.852 - Other specified disorders of bone density and structure, left thigh Referrals Dermatology Referral Z12.83 - Encounter for screening for malignant neoplasm of skin
--- OUTSIDE RECORDS SUMMARY | 2024-09-19 08:24 | XMS_ITS | Encounter Summary ---
Author Organization [facility] Address [address] [place] [address] Care Team Providers Care Material Chaser Name Role Phone Unavailable Primary Care Provider Unavailabl e Encounter Details Date Type Department Care Team (Late st Contact Info) Description 12/07/2023 Refill [facility] [address] [place] [id number] Maury Braun, ELIS [address] [place] [address] [address] [place] [address] Social History Tobacco Use Types Packs/Day Years [...]
--- OUTSIDE RECORDS SUMMARY | 2024-09-19 08:24 | XMS_ITS | Clinical Summary ---
Author Organization [facility] Address [address] [place] [address] Care Team Providers Care Hand Ii Cutter Name Role Phone Unavailable Primary Care Provider [...]
== END 2024-09-19 09:22 | disposition home or self-care (01) ==
PROVIDERS: PCP Internal Medicine; Visit Provider Internal Medicine
DX: Z00.01 Encounter for general adult medical examination with abnormal findings (principal); M85.852 Other specified disorders of bone density and structure, left thigh; Z12.83 Encounter for screening for malignant neoplasm of skin; I10 Essential (primary) hypertension

== ENCOUNTER → 2024-09-19 08:07 | Outpatient (BNVA) | payer MEDICARE, SELFPAY | PROVIDERS: PCP Internal Medicine; Visit Provider Internal Medicine | DX: Z00.01 Encounter for general adult medical examination with abnormal findings (principal); M85.852 Other specified disorders of bone density and structure, left thigh; I10 Essential (primary) hypertension | CPT/HCPCS: 96127; 99397 ==